=== PATIENT | male | born 1995 | race Caucasian/White ===

== ENCOUNTER 2017-07-15 00:32 | Emergency (ER) | payer SELFPAY ==
[2017-07-15 00:46] VITALS: BP 156/105
== END 2017-07-15 02:18 ==
LOC: JD.ED 00:32 → EDSEX 00:32 → JD.ED 02:18
DX: Z53.20 Procedure and treatment not carried out because of patient's decision for unspecified reasons (principal)
CPT/HCPCS: 99283-25